=== PATIENT | female | born 1990 | race Caucasian/White ===

== ENCOUNTER → 2018-09-14 | Outpatient (CLI) | payer BC ==
[~2018-09-14] MED LIST: IOPAMIDOL 61% 75 ML INFUS BTL 75 ML ONE
--- NOTE | 2018-09-14 09:43 | RADIOLOGY IMAGING REPORT ---
FACILITY: [facility] - [place] PATIENT NAME: Xochitl Johnson : 1990 MR: [id number] V: [id number] EXAM DATE: ORDERING PHYSICIAN: ALEXANDRO GILLILAND TECHNOLOGIST: Location: [facility] - [place] Patient: Xochitl Johnson : 1990 Visit/Account:[id number] Date of Sevice: 09/14/2018 EXAMINATION: CT neck with IV contrast HISTORY: Neck lump TECHNIQUE: CT was obtained through the neck following IV contrast administration. Sagittal and co shauna reformatted images were generated. 75 mL of IV Isovue 300 injected. One of the following dose optimization techniques was utilized in the performance of this exam: autom ated exposure control; adjustment of the mA and/or kV according to patient size; or use of iterative reconstruction technique. Specific details can be referenced in the facility's radiology CT exam ope rational policy. COMPARISON: None. FINDINGS: Parotid/submandibular and thyroid glands: Normal. Pharyngeal and retropharyngeal soft tissues: Normal. Oral cavity and grinder watch parts space soft tissues: Normal. Larynx/glottis and airway: Normal. Lymph nodes: Normal. Vessels: No significant finding. Other: BB marker localizes the site of concern along the midline mid to upper neck. The BB marker is at the level of the glottis. No apparent mass or abnormality in this area. The left thyroid cartil age does slightly asymmetrically protrude anteriorly in this area which may explain the palpable find ing. No apparent thyroglossal duct cyst in this area. Visualized orbits / brain: No significant finding. Upper chest: Normal. Bones/sinuses/mastoid air cells: Normal. IMPRESSION: 1. No apparent pathologic abnormality in the area of concern. The left thyroid cartilage does sligh tly asymmetrically protrude anteriorly in this area which may explain the palpable finding. Neck ultrasound may be warranted for further characterization to exclude the possibility of a small t hyroglossal duct cyst (given location of the patpable abnormality) in this area which could conceivab ly be not visible by CT secondary to similar density to the adjacent soft tissues. 2. Normal neck CT. Report Dictated By: Joss Gonzalez MD at 09/14/2018 9:12 AM Report E-Signed By: Joss Gonzalez MD at 09/14/2018 9:38 AM WSN:[id number]
== END ==
LOC: CT 07:57
PROVIDERS: ATTEND Family Medicine
DX: R22.1 Localized swelling, mass and lump, neck (principal)
CPT/HCPCS: 70491; Q9967

== ENCOUNTER → 2018-09-24 | Outpatient (CLI) | payer BC ==
--- NOTE | 2018-09-24 16:37 | RADIOLOGY IMAGING REPORT ---
FACILITY: [facility] - [place] PATIENT NAME: Xochitl Johnson : 1990 MR: [id number] V: [id number] EXAM DATE: ORDERING PHYSICIAN: ALEXANDRO GILLILAND TECHNOLOGIST: [facility] Patient: Xochitl Johnson : 1990 Visit/Account:[id number] Date of Sevice: 09/24/2018 EXAMINATION: Ultrasound thyroid HISTORY: Thyromegaly COMPARISON: None. FINDINGS: Thyroid size: Right lobe: 4.9 x 1.1 x 1.2 cm Left lobe: 4.9 x 1.2 x 1.2 cm Isthmus: 0.3 cm Thyroid heterogeneity: Homogeneous parenchyma. Thyroid vascularity: Increased Thyroid nodules: Right lobe: * Small hyperechoic nodule within the midpole measures 4 x 5 x 3 mm Left lobe: * None discrete. Isthmus: * None discrete. Additional findings: None. IMPRESSION: 1. Small right-sided thyroid nodule which does not meet the criteria for FNA. REFERENCE: 2015 [place] [employer] Management Guidelines for Adult Patients with Thyroid Nodules and D ifferentiated Thyroid Cancer: The [place] [employer] Guidelines Task Force on Thyroid Nodul es and Differentiated Thyroid Cancer. SONOGRAPHIC PATTERNS: * Benign: Purely cystic nodules (no solid component); estimated risk of malignancy <1 percent; no bi opsy recommended. * Very Low Suspicion: Spongiform or partially cystic nodules without any of the sonographic features described in low, intermediate, or high suspicion patterns; estimated risk of malignancy <3 percent; consider FNA at > 2 cm (Observation without FNA is also a reasonable option). * Low Suspicion: Isoechoic or hyperechoic solid nodule, or partially cystic nodule with eccentric so lid areas, without microcalcification, irregular margin or ETE (extra-thyroidal extension), or taller than wide shape; estimated risk of malignancy 5-10 percent; recommend FNA at >1.5 cm. * Intermediate Suspicion: Hypoechoic solid nodule with smooth margins without microcalcifications, E TE (extra-thyroidal extension), or taller than wide shape; estimated risk of malignancy 10-20 percent ; recommend FNA at > 1 cm. * High Suspicion: Solid hypoechoic nodule or solid hypoechoic component of a partially cystic nodule with one or more of the following features: irregular margins (infiltrative, microlobulated), microc alcifications, taller than wide shape, rim calcifications with small extrusive soft tissue component, evidence of ETE (extra-thyroidal extension); estimated risk of malignancy >70-90 percent; recommend FNA at > 1 cm. NOTES: * Although a sonographically suspicious subcentimeter thyroid nodule without evidence of extrathyroi linda extension or sonographically suspicious lymph nodes may be observed with close sonographic follow -up rather than pursuing immediate FNA, patient age and preference may modify decision-making. * A > 50% interval increase in nodule volume and/or development of new suspicious sonographic featur es are felt to be a valid reasons for potential re-aspiration of a nodule previously shown to have be nign FNA cytology. Report Dictated By: Lobito Ruffin DO at 09/24/2018 4:30 PM Report E-Signed By: Lobito Ruffin DO at 09/24/2018 4:33 PM WSN:[id number]
== END ==
LOC: US 00:26
PROVIDERS: ATTEND Family Medicine
DX: E04.1 Nontoxic single thyroid nodule (principal)
CPT/HCPCS: 76536

== ENCOUNTER → 2019-02-12 | Outpatient (CLI) | payer BC ==
[~2019-02-12] MED LIST changes: -IOPAMIDOL 61% 75 ML INFUS BTL 75 ML ONE; +IOPAMIDOL 76% 100 ML INFUS BTL 100 ML ONE
--- NOTE | 2019-02-12 14:53 | RADIOLOGY IMAGING REPORT ---
FACILITY: [facility] - [place] PATIENT NAME: Xochitl Johnson : 1990 MR: [id number] V: [id number] EXAM DATE: ORDERING PHYSICIAN: ALEXANDRO GILLILAND TECHNOLOGIST: Location: [facility] [place] Patient: Xochitl Johnson : 1990 Visit/Account:[id number] Date of Sevice: 02/12/2019 EXAMINATION: CT neck with IV contrast HISTORY: Left-sided neck mass COMPARISON: 09/14/2018 TECHNIQUE: Spiral scan was obtained from the hard palate through the upper chest during injection o f nonionic iodinated intravenous contrast. Sagittal and coronal reformatted images are also submitte d. CONTRAST: 35 mL of IV Isovue-370 One of the following dose optimization techniques was utilized in the performance of this exam: Autom ated exposure control; adjustment of the mA and/or kV according to the patient's size; or use of an i terative reconstruction technique. Specific details can be referenced in the facility's radiology C T exam operational policy. FINDINGS: Masses/lesions: None. Airway: Normal. Vessels: Negative. Musculoskeletal/body wall: Negative. Lymph nodes: Negative. Visualized orbits/brain/paranasal sinuses: Negative. Upper chest: Negative. IMPRESSION: Unremarkable CT scan of the neck. No significant change since the prior study. No eviden ce of space-occupying mass in the region of the BB placed on the patient's neck overlying the thyroid cartilage. Report Dictated By: AMERICA ALVAREZ at 02/12/2019 2:35 PM Report E-Signed By: AMERICA ALVAREZ at 02/12/2019 2:45 PM WSN:[id number]
== END ==
LOC: CT 01:42
PROVIDERS: ATTEND Family Medicine
DX: R22.1 Localized swelling, mass and lump, neck (principal)
CPT/HCPCS: 70491; Q9967